=== PATIENT | female | born 1995 | race Caucasian/White ===

== ENCOUNTER 2024-06-23 07:55 | Emergency (ER) | payer SELFPAY ==
[~2024-06-23] VITALS: Ht 162.6 cm; Wt 67.1 kg
[2024-06-23 08:06] VITALS: TEMP 98.3
[2024-06-23] MEDS ORDERED: ONDANSETRON HCL/PF 4 MG/2 ML VIAL ONE (08:23)
[2024-06-23 08:28] LABS: BASOPHILS # (AUTO) 0.1 K/uL (0.0-0.2); BASOPHILS % (AUTO) 0.3 % (0.0-2.0); HEMATOCRIT 45 % (33-45); HEMOGLOBIN 15.1 g/dL (11.5-14.8); LYMPHOCYTES # (AUTO) 1.3 K/uL (0.8-4.8); MEAN CORPUSCULAR HEMOGLOBIN 29 PG (26.0-33.0); MEAN CORPUSCULAR HGB CONC 34 g/dl (31.0-36.0); MEAN CORPUSCULAR VOLUME 87 fL (82-100); MONOCYTES # (AUTO) 0.6 K/uL (0.1-1.30); MONOCYTES % (AUTO) 3.6 % (2.0-12.0); NEUTROPHILS # (AUTO) 15.9 K/uL (1.8-8.9); NEUTROPHILS % (AUTO) 89.1 % (43.0-81.0); PLATELET COUNT (AUTO) 400 K/uL (150-450); RED BLOOD CELL COUNT(AUTO) 5.18 MIL/uL (4.0-5.2); RED CELL DISTRIBUTION WIDTH 13.4 % (11.5-15.0); WHITE BLOOD COUNT (AUTO) 17.9 K/uL (4.3-11.0)
[2024-06-23] MEDS: IV NS 0.9% 1,000 ML BAG IV ONE (08:28)
[2024-06-23] MEDS: ONDANSETRON HCL/PF 4 MG/2 ML VIAL IVP ONE (08:29)
[2024-06-23 08:50] LABS: CALCIUM, SERUM 9.9 mg/dL (8.5-10.1); POTASSIUM 3.4 mmol/L (3.5-5.1)
[2024-06-23 09:08] LABS: ALBUMIN 5.2 g/dL (3.4-5.0); BILIRUBIN,DIRECT 0.1 mg/dL (0.0-0.2); BILIRUBIN,TOTAL 0.6 mg/dL (0.2-1.0); TOTAL PROTEIN, SERUM 9.9 g/dL (6.4-8.2)
[2024-06-23] MEDS ORDERED: ONDA4TAB11 PO (09:25)
[2024-06-23] MEDS ORDERED: ONDANSETRON 4 MG TAB.RAPDIS ONE (10:24)
[2024-06-23] MEDS: ONDANSETRON 4 MG TAB.RAPDIS SL ONE (10:25)
[2024-06-23 10:30] VITALS: BP 117/76; O2SAT 99
== END 2024-06-23 10:30 | disposition home or self-care (01) ==
LOC: ER 07:59
DX: E86.0 Dehydration (principal); R11.2 Nausea with vomiting, unspecified; E87.20 Acidosis, unspecified; K22.6 Gastro-esophageal laceration-hemorrhage syndrome
CPT/HCPCS: 99283; 96374; 96361; 85025; 80048; 83690; 80076; 36415; 84702; J2405; J7030; Q0162